=== PATIENT | male | born 1965 | race Two or more races ===

== ENCOUNTER 2017-06-28 11:29 | Observation (INO) | payer MEDICAID, OTHER ==
[~2017-06-28] VITALS: Ht 160 cm; Wt 85.0 kg
[2017-06-28] MEDS ORDERED: ASPIRIN 81 MG TABLET CHEW PO ONE (12:30)
[2017-06-28] MEDS ORDERED: SODIUM CHLORIDE FLUSH 10ML SYR IVF ONE (12:30)
[2017-06-28 12:31] LABS: BASOPHILS # (AUTO) 0.02 x10^3/uL (0-0.1); BASOPHILS % (AUTO) 0 % (0-1); EOSINOPHILS # (AUTO) 0.11 x10^3/uL (0-0.4); EOSINOPHILS % (AUTO) 2 % (1-7); LYMPHOCYTES # (AUTO) 1.76 x10^3/uL (1-3.4); LYMPHOCYTES % (AUTO) 28 % (22-44); MD NO; MEAN CORPUSCULAR HEMOGLOBIN 31.3 pg (27.5-34.5); MEAN CORPUSCULAR HGB CONC 34.9 g/dL (33.2-36.2); MEAN CORPUSCULAR VOLUME 89.6 fL (81-97); MEAN PLATELET VOLUME 9.2 fL (7.4-10.4); MONOCYTES # (AUTO) 0.57 x10^3/uL (0.2-0.8); MONOCYTES % (AUTO) 9 % (2-9); NEUTROPHILS % (AUTO) 61 % (42-75); PLATELET COUNT 188 x10^3/uL (130-400); RED BLOOD COUNT 4.86 x10^6/uL (4.38-5.82); RED CELL DISTRIBUTION WIDTH 12.8 % (9.4-14.8)
[2017-06-28] MEDS ORDERED: ASPIRIN 81 MG TABLET CHEW ONE (12:31)
[2017-06-28 12:39] LABS: INTERNATIONAL NORMALIZED RATIO 0.98 (0.93-1.1); PROTHROMBIN TIME 10.2 Seconds (9.6-11.5)
[2017-06-28 12:42] LABS: ALANINE AMINOTRANSFERASE 30 U/L (12-78); ALBUMIN 3.5 g/dL (3.4-5.0); ANION GAP 6 mmol/L (5-15); CALCIUM 8.3 mg/dL (8.5-10.1); CHLORIDE 110 mmol/L (98-107); CREATININE 0.68 mg/dL (0.7-1.3)
[2017-06-28 12:47] LABS: ALKALINE PHOSPHATASE 86 U/L (45-117); BILIRUBIN,TOTAL 0.3 mg/dL (0.2-1.0); TOTAL PROTEIN 7.3 g/dL (6.4-8.2); TROPONIN I < 0.015 ng/mL (0.000-0.045)
[2017-06-28] MEDS ORDERED: MAALOX/HYOSCYAMINE/LIDOCAINE 45 ML BTL PO ONE (14:30)
[2017-06-28] MEDS ORDERED: ACETAMINOPHEN 500 MG TABLET PO PRN (14:30)
[2017-06-28] MEDS ORDERED: SODIUM CHLORIDE FLUSH 10ML SYR IVF PRN (14:30)
[2017-06-28] MEDS ORDERED: NITROGLYCERIN 0.4 MG BOTTLE (25 TABS) SL PRN (14:30)
[2017-06-28] MEDS ORDERED: OMNIPAQUE 350 MG/ML, 100ML BOTTLE ONE (14:56)
[2017-06-28 15:36] LABS: TROPONIN I < 0.015 ng/mL (0.000-0.045)
[2017-06-28 16:15] VITALS: BP 117/77
[2017-06-28 19:54] VITALS: BP 109/67
[2017-06-28 21:34] LABS: CHOLESTEROL, TOTAL 175 mg/dL (140-239); TRIGLYCERIDES 292 mg/dL (50-200); VLDL CHOLESTEROL 58 mg/dL (0-25)
[2017-06-28 21:37] LABS: TROPONIN I < 0.015 ng/mL (0.000-0.045)
[2017-06-28 22:29] LABS: CHOL/HDL RATIO 6.5; HDL CHOL % 15 % (26-37); HDL CHOLESTEROL (DIRECT) 27 mg/dL (40-60); LDL CHOLESTEROL,CALCULATED 90 mg/dL (54-169); LDL/HDL RATIO 3.3 (0.5-3.0)
[2017-06-29 01:50] VITALS: BP 98/64
[2017-06-29 08:15] VITALS: BP 104/64
[2017-06-29] MEDS ORDERED: REGADENOSON 0.4 MG/5 ML SYRINGE ONE (08:38)
[2017-06-29 13:00] VITALS: BP 109/73
[2017-06-29] MEDS ORDERED: ACET500T71 PO (14:58)
[2017-06-29] MEDS ORDERED: FENO160T PO (15:00)
== END 2017-06-29 16:23 | disposition home or self-care (01) ==
LOC: ED 12:36 → INTOOBSV 14:09 → EDIP 14:09 → 5SO 15:29
PROVIDERS: ADMIT Internal Medicine; ATTEND Internal Medicine
DX: R07.89 Other chest pain (principal); E66.9 Obesity, unspecified; Z68.31 Body mass index [BMI] 31.0-31.9, adult; Z87.891 Personal history of nicotine dependence
CPT/HCPCS: 36415; 71045; 71275; 78452; 80053; 80061; 84484; 85025; 85610; 85730; 93005; 93017; 93306; 99285; A9502; C9898; G0378; J2785; Q9967

== ENCOUNTER 2018-10-21 20:35 | Emergency (ER) | payer SELFPAY ==
[~2018-10-21] VITALS: Ht 172.7 cm; Wt 90.2 kg
[~2018-10-21 20:35] MED LIST: ACET500T71 PO; FENO160T PO
--- NOTE | 2018-10-21 20:49 | NUR ---
CP THAT STARTED 5 DAYS AGO. CONSTANT. LEFT SIDED CHEST, FACE, ARM. WORSE WITH MOVEMENT. DENIES COUGHT. PAIN WITH BREATHING.
--- NOTE | 2018-10-21 20:54 | NUR ---
ER MD IN TO ASSESS PT
[2018-10-21] MEDS ORDERED: KETOROLAC 30 MG/1 ML ONE (20:59)
[2018-10-21] MEDS ORDERED: KETOROLAC 30 MG/1 ML IM ONE (21:00)
--- NOTE | 2018-10-21 21:06 | NUR ---
PT MEDICATED FOR PAIN PER EMAR
[2018-10-21 21:27] LABS: BASOPHILS # (AUTO) 0.04 x10^3/uL (0-0.1); BASOPHILS % (AUTO) 1 % (0-1); EOSINOPHILS # (AUTO) 0.18 x10^3/uL (0-0.4); EOSINOPHILS % (AUTO) 3 % (1-7); LYMPHOCYTES # (AUTO) 1.75 x10^3/uL (1-3.4); LYMPHOCYTES % (AUTO) 26 % (22-44); MD NO; MEAN CORPUSCULAR HEMOGLOBIN 31.2 pg (27.5-34.5); MEAN CORPUSCULAR HGB CONC 33.8 g/dL (33.2-36.2); MEAN CORPUSCULAR VOLUME 92.4 fL (81-97); MEAN PLATELET VOLUME 9.3 fL (7.4-10.4); MONOCYTES # (AUTO) 0.57 x10^3/uL (0.2-0.8); MONOCYTES % (AUTO) 9 % (2-9); NEUTROPHILS # (AUTO) 4.12 x10^3/uL (1.8-6.8); NEUTROPHILS % (AUTO) 62 % (42-75); PLATELET COUNT 199 x10^3/uL (130-400); RED BLOOD COUNT 4.66 x10^6/uL (4.38-5.82); RED CELL DISTRIBUTION WIDTH 14.1 % (9.4-14.8)
[2018-10-21 21:35] LABS: ALBUMIN 3.5 g/dL (3.4-5.0); ANION GAP 9 mmol/L (5-15); CALCIUM 8.6 mg/dL (8.5-10.1); CHLORIDE 107 mmol/L (98-107); CREATININE 0.97 mg/dL (0.7-1.3)
[2018-10-21 21:38] LABS: TROPONIN I < 0.015 ng/mL (0.000-0.045)
--- NOTE | 2018-10-21 21:53 | NUR ---
PT DIAGNOSICS RESULTED BACK AND PT PLACED UP FOR RECHECK BY GALLO GOULD
[2018-10-21 22:03] VITALS: BP 101/69
--- NOTE | 2018-10-21 22:04 | NUR ---
pt reports pain in his left chest has improved from 5/10 to 3/10 since medicated
== END 2018-10-21 22:50 | disposition home or self-care (01) ==
LOC: ED 22:39
DX: R07.2 Precordial pain (principal); R20.0 Anesthesia of skin; F17.200 Nicotine dependence, unspecified, uncomplicated
CPT/HCPCS: 36415; 71045; 80048; 82040; 84484; 85025; 93005; 96372; 99284; J1885

== ENCOUNTER 2019-07-27 10:53 | Emergency (ER) | payer OTHER ==
[~2019-07-27] VITALS: Ht 165.1 cm; Wt 93.1 kg
[~2019-07-27 10:53] MED LIST changes: +ACET500T64 PO; -ACET500T71 PO
--- NOTE | 2019-07-27 11:07 | NUR ---
EBENEZER QUIROZ BS FOR EXAM.
--- NOTE | 2019-07-27 12:00 | NUR ---
PT IN RADIOLOGY
[2019-07-27 13:10] VITALS: BP 121/82
== END 2019-07-27 13:12 | disposition home or self-care (01) ==
LOC: ED 11:54
DX: S16.1XXA Strain of muscle, fascia and tendon at neck level, initial encounter (principal); S39.012A Strain of muscle, fascia and tendon of lower back, initial encounter; S46.811A Strain of other muscles, fascia and tendons at shoulder and upper arm level, right arm, initial encounter; G89.21 Chronic pain due to trauma; R51 Headache; V43.62XA Car passenger injured in collision with other type car in traffic accident, initial encounter; Y93.89 Activity, other specified; Y92.488 Other paved roadways as the place of occurrence of the external cause; Y99.8 Other external cause status
CPT/HCPCS: 70450; 70486; 72110; 72125; 99285

== ENCOUNTER 2019-08-09 04:15 | Emergency (ER) | payer SELFPAY ==
[~2019-08-09] VITALS: Ht 165.1 cm; Wt 94.1 kg
--- NOTE | 2019-08-09 04:25 | NUR ---
THIS IS A 54 YO MALE COMING IN FOR EPIGASTRIC PAIN AND RUQ ABD PAIN STARTED A FEW DAYS AGO, TENDER TO PALPATION, C/O NAUSEA, AND "JUST A LITTLE BIT OF VOMIT", DENIES DIARRHEA. PATIENT DENIES ANY MEDICAL HX, STATES "PAIN IS WORSE WHEN I'M AT WORK AND SWEEPING. 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 SPO2 AND BP MONITORING IN PLACE, VSS, NAD, IN ROOM. CALL LIGHT IN REACH.
[2019-08-09] MEDS ORDERED: MAALOX/HYOSCYAMINE/LIDOCAINE 45 ML BTL ONE (04:50)
[2019-08-09] MEDS ORDERED: FAMOTIDINE 20 MG TABLET ONE (04:50)
[2019-08-09] MEDS ORDERED: ONDANSETRON ODT 4 MG ONE (04:50)
[2019-08-09] MEDS ORDERED: MAALOX/HYOSCYAMINE/LIDOCAINE 45 ML BTL PO ONE (05:00)
[2019-08-09] MEDS ORDERED: FAMOTIDINE 20 MG TABLET PO ONE (05:00)
[2019-08-09] MEDS ORDERED: ONDANSETRON ODT 4 MG PO ONE (05:00)
--- NOTE | 2019-08-09 05:00 | NUR ---
PATIENT MEDICATED PER EMAR, TOLERATED WELL
--- NOTE | 2019-08-09 05:25 | NUR ---
US IN ROOM
[2019-08-09 05:36] LABS: ANION GAP 5 mmol/L (5-15); CALCIUM 8.6 mg/dL (8.5-10.1); CHLORIDE 110 mmol/L (98-107); CREATININE 0.75 mg/dL (0.7-1.3)
[2019-08-09 05:37] LABS: ALANINE AMINOTRANSFERASE 37 U/L (12-78); ALBUMIN 3.2 g/dL (3.4-5.0)
[2019-08-09 05:41] LABS: ALKALINE PHOSPHATASE 91 U/L (45-117); BILIRUBIN,TOTAL 0.4 mg/dL (0.2-1.0); TOTAL PROTEIN 7.1 g/dL (6.4-8.2); TROPONIN I < 0.015 ng/mL (0.000-0.045)
[2019-08-09 05:43] LABS: BASOPHILS # (AUTO) 0.04 x10^3/uL (0-0.1); BASOPHILS % (AUTO) 1 % (0-1); EOSINOPHILS # (AUTO) 0.24 x10^3/uL (0-0.4); EOSINOPHILS % (AUTO) 4 % (1-7); LYMPHOCYTES # (AUTO) 2.05 x10^3/uL (1-3.4); LYMPHOCYTES % (AUTO) 30 % (22-44); MD NO; MEAN CORPUSCULAR HEMOGLOBIN 30.5 pg (27.5-34.5); MEAN CORPUSCULAR VOLUME 89.8 fL (81-97); MEAN PLATELET VOLUME 9.3 fL (7.4-10.4); MONOCYTES # (AUTO) 0.67 x10^3/uL (0.2-0.8); MONOCYTES % (AUTO) 10 % (2-9); NEUTROPHILS # (AUTO) 3.93 x10^3/uL (1.8-6.8); NEUTROPHILS % (AUTO) 57 % (42-75); PLATELET COUNT 180 x10^3/uL (130-400); RED BLOOD COUNT 4.77 x10^6/uL (4.38-5.82); RED CELL DISTRIBUTION WIDTH 13.2 % (9.4-14.8)
--- NOTE | 2019-08-09 06:00 | NUR ---
PATIENT ROAD TESTED FOR SPO2, STAYED AT 94-96% DURING TEST
--- NOTE | 2019-08-09 06:51 | NUR ---
RECEIVED REPORT FROM JONEL RN, PLAN OF CARE DISCUSSED
[2019-08-09 07:06] VITALS: BP 118/70
--- NOTE | 2019-08-09 07:06 | NUR ---
Patient/Caregiver given discharge instructions and they have confirmed that they understand the instructions. Patient ambulatory with steady gait.
== END 2019-08-09 07:08 | disposition home or self-care (01) ==
LOC: ED 04:53
DX: K29.00 Acute gastritis without bleeding (principal); R10.13 Epigastric pain; R07.9 Chest pain, unspecified; I25.2 Old myocardial infarction
CPT/HCPCS: 36415; 71045; 76700; 80053; 83690; 83880; 84145; 84484; 85025; 93005; 99285; Q0162

== ENCOUNTER 2020-01-15 16:41 | Emergency (ER) | payer OTHER ==
[~2020-01-15] VITALS: Ht 165.1 cm; Wt 94.3 kg
[2020-01-15 16:44] VITALS: BP 134/89
== END 2020-01-15 19:11 | disposition home or self-care (01) ==
LOC: ED 17:59
DX: M94.0 Chondrocostal junction syndrome [Tietze] (principal); R10.31 Right lower quadrant pain
CPT/HCPCS: 99283